=== PATIENT | male | born 1960 | race Two or more races ===

== ENCOUNTER 2025-03-01 12:27 | Inpatient (IN) | payer OTHER, MEDICAID ==
[~2025-03-01] VITALS: Ht 152.4 cm; Wt 71.7 kg
[2025-03-01] MEDS ORDERED: MEGE400O6 PO (14:30)
[2025-03-01] MEDS ORDERED: SEVE800T8 PO (14:30)
[2025-03-01] MEDS ORDERED: ACET-868 PO (14:30)
[2025-03-01] MEDS ORDERED: FOLI0.8T2 PO (14:30)
[2025-03-01] MEDS ORDERED: INSU100V39 SQ (14:30)
[2025-03-01] MEDS ORDERED: DIPH-1048 PO (14:30)
[2025-03-01] MEDS ORDERED: GLUC1KIT IM (14:30)
[2025-03-01] MEDS ORDERED: CLON0.2T PO (14:30)
[2025-03-01] MEDS ORDERED: MAGN400O6 PO (14:30)
[2025-03-01] MEDS ORDERED: BISA10SU11 RC (14:30)
[2025-03-01] MEDS ORDERED: DOCU250C14 PO (14:30)
[2025-03-01] MEDS ORDERED: FAMO20TA80 PO (14:30)
[2025-03-01] MEDS ORDERED: ASCO500T21 PO (14:30)
[2025-03-01] MEDS ORDERED: ACET-2030 PO (14:30)
[2025-03-01] MEDS: VANCOMYCIN 1 GM in IV D5W 250 ML IV ONE (14:35)
[2025-03-01 15:00] VITALS: O2SAT 98
[2025-03-01 15:12] LABS: LACTIC ACID 2.2 mmol/L (0.4-2.0)
[2025-03-01 15:23] LABS: PLATELET COUNT (AUTO) 288 K/uL (150-450); RED BLOOD CELL COUNT(AUTO) 4.50 MIL/uL (4.5-6.0); RED CELL DISTRIBUTION WIDTH 19.9 % (11.5-15.0); WHITE BLOOD COUNT (AUTO) 9.3 K/uL (4.3-11.0)
[2025-03-01 15:50] LABS: CALCIUM, SERUM 10.6 mg/dL (8.5-10.1); SODIUM SERUM 139.0 mmol/L (136-145)
[2025-03-01 15:51] LABS: CREATININE 5.4 mg/dL (0.6-1.3); UREA NITROGEN, BLOOD 39.0 mg/dL (7-18)
[2025-03-01 16:05] LABS: INR 1.14 (0.91-1.10)
[2025-03-01] MEDS ORDERED: BISACODYL SUPP (10 MG) 10 MG/SUPP.RECT SUPP.RECT RC PRN (17:00)
[2025-03-01] MEDS ORDERED: HOME MED MISCELLANEOUS XX SCH (17:00)
[2025-03-01] MEDS ORDERED: ACETAMINOPHEN 325 MG TABLET PO PRN ×2 (17:00)
[2025-03-01] MEDS ORDERED: MAGNESIUM HYDROXIDE 30 ML UDC PO PRN ×2 (17:00)
[2025-03-01] MEDS ORDERED: Z GUARD REMEDY 4 OZ OINT TP PRN (17:00)
[2025-03-01] MEDS ORDERED: DOSING PER PHARMACY-VANCOMYCIN IV XX PRN (17:00)
[2025-03-01] MEDS ORDERED: diphenhydrAMINE HCL ELIX 25 MG/10 ML UDC PO PRN (17:00)
[2025-03-01] MEDS ORDERED: MAG HYDROX/AL HYDROX/SIMETH 30 ML UDC PO PRN (17:00)
[2025-03-01] MEDS ORDERED: ONDANSETRON HCL/PF 4 MG/2 ML VIAL IVP PRN (17:00)
[2025-03-01] MEDS ORDERED: ACETAMINOPHEN ES 500 MG TABLET PO PRN (17:00)
[2025-03-01] MEDS ORDERED: DEXTROSE 50%-WATER 50 ML DISP.SYRIN IV PRN (17:00)
[2025-03-01] MEDS: BLOOD SUGAR DIAGNOSTIC 1 EACH STRIP IN SCH (17:53)
[2025-03-01] MEDS: SEVELAMER CARBONATE 800 MG TABLET PO SCH (18:00)
[2025-03-01] MEDS: INSULIN REGULAR, HUMAN 100 UNIT/ML 3 ML VIAL SQ PRN (18:02)
[2025-03-01 18:11] LABS: LACTIC ACID REFLEX 2.2 mmol/L (0.4-1.9)
[2025-03-01 20:00] VITALS: BP 148/77; TEMP 98.2; O2SAT 100
[2025-03-02] MEDS: HYDROCODONE/APAP 5/325MG TABLET PO PRN (00:07)
[2025-03-02 07:30] VITALS: BP 122/71; TEMP 97.8; O2SAT 99
[2025-03-02] MEDS: PANTOPRAZOLE 40 MG TABLET.DR PO SCH (07:37)
[2025-03-02] MEDS: ASCORBIC ACID 500 MG TABLET PO SCH (08:37)
[2025-03-02] MEDS: VIT B CMPLX 3/FA/VIT C/BIOTIN 1 TAB TABLET PO SCH (08:37)
[2025-03-02] MEDS: DOCUSATE SODIUM 250 MG CAPSULE PO SCH (08:37)
[2025-03-02] MEDS: MEGESTROL ACETATE SUSP 400 MG/10 ML UDC PO SCH (08:37)
[2025-03-02 08:40] LABS: LDL 49.0 mg/dL (0-99)
[2025-03-02 09:03] LABS: PLATELET COUNT (AUTO) 263 K/uL (150-450); RED BLOOD CELL COUNT(AUTO) 4.16 MIL/uL (4.5-6.0); RED CELL DISTRIBUTION WIDTH 18.9 % (11.5-15.0); WHITE BLOOD COUNT (AUTO) 6.4 K/uL (4.3-11.0)
[2025-03-02 10:01] LABS: CALCIUM, SERUM 10.1 mg/dL (8.5-10.1); CREATININE 6.2 mg/dL (0.6-1.3); PHOSPHORUS 2.2 mg/dL (2.5-4.9); SODIUM SERUM 138.0 mmol/L (136-145); UREA NITROGEN, BLOOD 53.0 mg/dL (7-18)
[2025-03-02] MEDS: MUPIROCIN OINT 2% 22 GM TUBE TP SCH (11:11)
[2025-03-02 16:00] VITALS: BP 119/49; TEMP 98.1; O2SAT 98
[2025-03-02] MEDS: VANCOMYCIN POST DIALYSIS 500MG IV PRN (16:59)
[2025-03-02 20:00] VITALS: BP 110/65; TEMP 98.1; O2SAT 100
[2025-03-02] MEDS: LEVOFLOXACIN (250MG) 250 MG TABLET PO SCH (22:19)
[2025-03-03 08:00] VITALS: BP 179/78; TEMP 97.9; O2SAT 96
[2025-03-03] MEDS ORDERED: DOSING PER PHARMACY-CEFEPIME IVPB XX PRN (08:30)
[2025-03-03] MEDS: CEFEPIME 1 GM in IV D5W 50 ML IV SCH (09:30)
[2025-03-03 10:39] LABS: ASPARTATE AMINOTRANSFERASE 15.0 U/L (15-37); CALCIUM, SERUM 9.7 mg/dL (8.5-10.1); CREATININE 5.3 mg/dL (0.6-1.3); PHOSPHORUS 1.9 mg/dL (2.5-4.9); SODIUM SERUM 135.0 mmol/L (136-145); TOTAL PROTEIN, SERUM 7.3 g/dL (6.4-8.2); UREA NITROGEN, BLOOD 40.0 mg/dL (7-18)
[2025-03-03 15:58] LABS: PLATELET COUNT (AUTO) 272 K/uL (150-450); RED BLOOD CELL COUNT(AUTO) 4.44 MIL/uL (4.5-6.0); RED CELL DISTRIBUTION WIDTH 18.7 % (11.5-15.0); WHITE BLOOD COUNT (AUTO) 6.1 K/uL (4.3-11.0)
[2025-03-03 16:00] VITALS: BP 156/66; TEMP 98; O2SAT 97
[2025-03-03 20:00] VITALS: BP 93/45; TEMP 98.1; O2SAT 96
[2025-03-04 07:30] VITALS: BP 173/56; TEMP 97.7; O2SAT 99
[2025-03-04 08:13] LABS: CALCIUM, SERUM 10.1 mg/dL (8.5-10.1); CREATININE 6.6 mg/dL (0.6-1.3); SODIUM SERUM 138.0 mmol/L (136-145); UREA NITROGEN, BLOOD 61.0 mg/dL (7-18)
[2025-03-04] MEDS: CLONIDINE HCL 0.1 MG TABLET PO PRN (16:20)
[2025-03-04 20:00] VITALS: BP 139/46; TEMP 97.4; O2SAT 98
[2025-03-05 08:32] VITALS: BP 154/48; TEMP 97.9; O2SAT 99
[2025-03-05 10:25] LABS: CALCIUM, SERUM 9.6 mg/dL (8.5-10.1); CREATININE 6.0 mg/dL (0.6-1.3); SODIUM SERUM 137.0 mmol/L (136-145); UREA NITROGEN, BLOOD 47.0 mg/dL (7-18)
[2025-03-05 16:01] VITALS: BP 140/46; TEMP 98.3; O2SAT 97
== END 2025-03-05 19:32 | DRG 564 ==
LOC: ER 12:42 → MED 16:05
PROVIDERS: ADMIT Nurse Practitioner Acute Care; ATTEND Nurse Practitioner Acute Care
PROC: 5A1D70Z Performance of Urinary Filtration, Intermittent, Less than 6 Hours Per Day (ICD-10-PCS; principal; 2025-03-02)
DX: T87.44 Infection of amputation stump, left lower extremity (principal); G93.41 Metabolic encephalopathy; N18.6 End stage renal disease; J15.69 Pneumonia due to other Gram-negative bacteria; L03.116 Cellulitis of left lower limb; I12.0 Hypertensive chronic kidney disease with stage 5 chronic kidney disease or end stage renal disease; M86.172 Other acute osteomyelitis, left ankle and foot; F03.92 Unspecified dementia, unspecified severity, with psychotic disturbance; F03.94 Unspecified dementia, unspecified severity, with anxiety; E11.51 Type 2 diabetes mellitus with diabetic peripheral angiopathy without gangrene; Z99.2 Dependence on renal dialysis; Y83.8 Other surgical procedures as the cause of abnormal reaction of the patient, or of later complication, without mention of misadventure at the time of the procedure; Y83.5 Amputation of limb(s) as the cause of abnormal reaction of the patient, or of later complication, without mention of misadventure at the time of the procedure; Y92.89 Other specified places as the place of occurrence of the external cause; Z89.611 Acquired absence of right leg above knee; Z79.899 Other long term (current) drug therapy; Z79.4 Long term (current) use of insulin; E11.621 Type 2 diabetes mellitus with foot ulcer; L97.529 Non-pressure chronic ulcer of other part of left foot with unspecified severity; E11.42 Type 2 diabetes mellitus with diabetic polyneuropathy; D63.1 Anemia in chronic kidney disease; E11.22 Type 2 diabetes mellitus with diabetic chronic kidney disease; D50.9 Iron deficiency anemia, unspecified; Z84.1 Family history of disorders of kidney and ureter; E11.69 Type 2 diabetes mellitus with other specified complication; F29 Unspecified psychosis not due to a substance or known physiological condition; N25.0 Renal osteodystrophy; Y95 Nosocomial condition
CPT/HCPCS: 36415; 71045-TC; 73630-TC; 80048-TC; 80053-TC; 80061-TC; 80202-TC; 82247-TC; 82248-TC; 82962-TC; 83605-TC; 83735-TC; 83970; 84100-TC; 85025-TC; 85652-TC; 85730-TC; 86140-TC; 87040-TC; 87081-TC; 90935-TC; A4223; A6223; A6253; G0378; J0692; J1815; J3373; J7060

== ENCOUNTER 2025-06-26 18:13 | Emergency (ER) | payer MEDICARE, OTHER ==
[~2025-06-26] VITALS: Ht 167.6 cm; Wt 63.5 kg
[~2025-06-26 18:13] MED LIST: ACET-2030 PO; ACET-868 PO; ASCO500T21 PO; BISA10SU11 RC; CLON0.2T PO; DIPH-1048 PO; DOCU250C14 PO; FAMO20TA80 PO; FOLI0.8T2 PO; GLUC1KIT IM; INSU100V39 SQ; MAGN400O6 PO; MEGE400O6 PO; SEVE800T8 PO
[2025-06-26 18:56] LABS: PLATELET COUNT (AUTO) 155 K/uL (150-450); RED BLOOD CELL COUNT(AUTO) 4.50 MIL/uL (4.5-6.0); RED CELL DISTRIBUTION WIDTH 18.4 % (11.5-15.0); WHITE BLOOD COUNT (AUTO) 4.8 K/uL (4.3-11.0)
[2025-06-26 19:14] LABS: CALCIUM, SERUM 9.1 mg/dL (8.5-10.1); CREATININE 6.4 mg/dL (0.6-1.3); SODIUM SERUM 138.0 mmol/L (136-145); UREA NITROGEN, BLOOD 55.0 mg/dL (7-18)
[2025-06-26] MEDS ORDERED: CLONIDINE HCL 0.1 MG TABLET ONE (20:09)
[2025-06-26] MEDS: CLONIDINE HCL 0.1 MG TABLET PO ONE (20:12)
[2025-06-26] MEDS ORDERED: hydrALAZINE HCL IV 20 MG VIAL ONE (21:08)
[2025-06-26] MEDS: hydrALAZINE HCL IV 20 MG VIAL IV ONE (21:09)
[2025-06-26 21:42] VITALS: BP 162/60; TEMP 98; O2SAT 99
== END 2025-06-26 21:44 ==
LOC: ER 18:19
DX: S90.922D Unspecified superficial injury of left foot, subsequent encounter (principal); E11.22 Type 2 diabetes mellitus with diabetic chronic kidney disease; E11.51 Type 2 diabetes mellitus with diabetic peripheral angiopathy without gangrene; F03.90 Unspecified dementia, unspecified severity, without behavioral disturbance, psychotic disturbance, mood disturbance, and anxiety; I12.0 Hypertensive chronic kidney disease with stage 5 chronic kidney disease or end stage renal disease; N18.6 End stage renal disease; Z89.611 Acquired absence of right leg above knee; Z99.2 Dependence on renal dialysis; X58.XXXD Exposure to other specified factors, subsequent encounter
CPT/HCPCS: 99285; 96374; 73630; 85025; 80048; 36415; J0360